=== PATIENT | female | born 1980 ===

== ENCOUNTER 2022-01-25 05:50 | Day surgery (SDC) | payer OTHER ==
[~2022-01-25 05:50] MED LIST: ALLEGRA ALLERG180 MG PO
[2022-01-25] MEDS ORDERED: PERCOCET 5-3251 EACH PO (09:23)
== END 2022-01-25 10:45 | disposition home or self-care (01) ==
LOC: CIR.AMB 05:50
PROVIDERS: ATTEND Surgery
DX: C73 Malignant neoplasm of thyroid gland (principal); Z20.822 Contact with and (suspected) exposure to COVID-19